=== PATIENT | female | born 1990 | race Hispanic/Latino ===

== ENCOUNTER 2017-07-04 10:12 | Emergency (ER) | payer SELFPAY ==
[2017-07-04 10:19] VITALS: BP 177/126
--- NOTE | 2017-07-04 10:57 | XRay Report ---
LEFT ANKLE, 3 views: History: Injury, pain. There is severe diffuse soft tissue swelling. Bone mineralization is normal. No acute osseous abnormality or joint pathology is identified. IMPRESSION: Soft tissue swelling.
[2017-07-04] MEDS ORDERED: TORADOL IM ONE (11:22)
--- NOTE | 2017-07-04 11:26 | Emergency Department Report ---
ED Lower Extremity HPI - General Chief Complaint: Extremity Injury, Lower Stated Complaint: LEFT ANKLE Time Seen by Provider: 07/04/17 11:02 Source: patient Mode of arrival: Ambulatory Limitations: No Limitations - History of Present Illness MD Complaint: ankle injury -: Sudden Injury: Ankle: Left Type of Injury: eversion Place: home Severity: moderate Improves With: NSAID Worsens With: movement Context: walking Associated Symptoms: snap/pop sensation Treatments Prior to Arrival: NSAIDS - Related Data Previous Rx's Medication Instructions Recorded Last Taken Type traMADol [Ultram] 50 mg PO Q6HR PRN #12 tablet 07/04/17 Unknown Rx Allergies Allergy/AdvReac Type Severity Reaction Status Date / Time No Known Allergies Allergy Verified 07/04/17 10:20 ED Review of Systems ROS: Stated complaint: LEFT ANKLE Other details as noted in HPI Comment: All other systems reviewed and negative Musculoskeletal: other (ankle pain) ED Past Medical Hx - Past Medical History Previous Medical History?: Yes Hx Hypertension: Yes - Surgical History Past Surgical History?: No - Social History Smoking Status: Never Smoker Substance Use Type: Alcohol - Medications Home Medications: Home Medications Medication Instructions Recorded Confirmed Last Taken Type traMADol [Ultram] 50 mg PO Q6HR PRN #12 tablet 07/04/17 Unknown Rx ED Physical Exam - General Limitations: No Limitations General appearance: alert - Head Head exam: Present: atraumatic - Eye Eye exam: Present: PERRL - ENT ENT exam: Present: mucous membranes moist - Neck Neck exam: Present: normal inspection - Respiratory Respiratory exam: Present: normal lung sounds bilaterally - Cardiovascular Cardiovascular Exam: Present: regular rate - GI/Abdominal GI/Abdominal exam: Present: soft - Rectal Rectal exam: Present: deferred - Extremities Exam Extremities exam: Present: other (l ankle swelling. lateral. good pulses. rapid cap refill. abbulating here) ED Course Vital Signs 07/04/17 10:17 Temperature 98.1 F Pulse Rate 97 H Respiratory 16 Rate Blood Pressure 177/126 O2 Sat by Pulse 100 Oximetry - Reevaluation(s) Reevaluation #1: 07/04/17 12:07 to er p everting her ankle last pm she works here; ambulatory to er swelling judy lat mal area good pulses and cap refill full rom bp 150/88 per provider exam. xray neg jose/crutches rest, ice and elevate toradol for pain disc of image given to pt will follow up ortho this week for reeval ED Lower Extremity MDM - Radiology Data Radiology results: report reviewed, image reviewed - Medical Decision Making see note - Differential Diagnosis sprain v fx Critical care attestation.: If time is entered above; I have spent that time in minutes in the direct care of this critically ill patient, excluding procedure time. ED Disposition Clinical Impression: Ankle sprain Disposition: TO HOME OR SELFCARE Is pt being admited?: No Does the pt Need Aspirin: No Condition: Stable Instructions: Ankle Sprain (ED) Additional Instructions: ice rest elevate immobilize crutches med as ordered follow up ortho Prescriptions: traMADol [Ultram] 50 mg PO Q6HR PRN #12 tablet PRN Reason: Pain Referrals: PRIMARY CARE, [Primary Care Provider] - 3-5 Days GAVIN BACA MD [Staff Physician] - 3-5 Days Time of Disposition: 11:25
== END 2017-07-04 11:30 | disposition home or self-care (01) ==
LOC: ED 10:12
DX: S93.402A Sprain of unspecified ligament of left ankle, initial encounter (principal); I10 Essential (primary) hypertension; X58.XXXA Exposure to other specified factors, initial encounter; Y93.89 Activity, other specified; Y92.89 Other specified places as the place of occurrence of the external cause; Y99.8 Other external cause status
CPT/HCPCS: 73610; 96372; 99284; J1885